=== PATIENT | male | born 1995 | race Caucasian/White ===

== ENCOUNTER → 2022-08-23 15:23 | Outpatient (CLI) | payer OTHER, SELFPAY ==
--- NOTE | 2022-08-23 | DI.NM.S_ITS ---
PROCEDURE: NM EXERCISE TREADMILL NON NUC COMPARISON: None. INDICATIONS: Chest pain, unspecified FINDINGS: The patient exercised for 13 minutes and 23 seconds reaching 94% of maximum predicted heart rate. Appropriate BP response to exercise. 14.8METs, ELVIA +9%. No ST changes, no ectopy, and no angina during exercise or recovery. IMPRESSION: Low risk, normal treadmill ECG only stress test with slightly reduced exercise tolerance (ELVIA +9%). Dictated by: Ganesh Cerda MD on 08/24/2022 at 13:02 Approved by: Ganesh Cerda MD on 08/24/2022 at 13:04
== END ==
PROVIDERS: Referring Provider Internal Medicine Cardiovascular Disease; Visit Provider Internal Medicine Cardiovascular Disease
DX: R07.9 Chest pain, unspecified (principal)
CPT/HCPCS: 93017